=== PATIENT | female | born 1995 | race Caucasian/White ===

== ENCOUNTER 2017-05-09 18:19 | Emergency (ER) | payer OTHER ==
--- NOTE | 2017-05-09 19:27 | ED Physician Documentation ---
PD HPI NVD - Stated complaint Stated Complaint: CHILLS/8 WK OB - Chief complaint Chief Complaint: General - History obtained from History obtained from: Patient - History of Present Illness Timing - onset: How many weeks ago (few weeks nausea and vomiting, general weakness) Timing - duration: Weeks Timing - details: Gradual onset, Still present, Waxing and waning Contributing factors: No: Anticoagulated Improved by: Vomiting Worsened by: Eating Similar symptoms before: Has not had sx before Recently seen: Not recently seen - Additonal information Additional information: not really infectious. seems related to Review of Systems Constitutional: reports: Myalgias. denies: Fever, Chills Eyes: denies: Loss of vision Nose: denies: Rhinorrhea / runny nose, Congestion Throat: denies: Sore throat GI: reports: Nausea, Vomiting (some mornings). 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 : None - Past Surgical History Past Surgical History: Yes HEENT: Tonsil/Adenoidectomy - Present Medications Home Medications: Ambulatory Orders Medication Instructions Recorded Confirmed Doxylamine Succinate [Wal-Zane] 25 mg PO Q6H PRN #60 tablet 05/09/17 Famotidine [Pepcid] 20 mg PO ONCE #30 tablet 05/09/17 Ondansetron Odt [Zofran] 4 mg TL Q6H PRN #15 tablet 05/09/17 Vitamin [Trinatal Rx 1] 1 each PO DAILY #90 tablet 05/09/17 Pyridoxine HCl [Vitamin B-6] 25 mg PO BID #60 tablet 05/09/17 - Allergies Allergies/Adverse Reactions: Allergies Allergy/AdvReac Type Severity Reaction Status Date / Time No Known Drug Allergies Allergy Verified 05/09/17 18:32 - Social History Does the pt smoke?: No Smoking Status: Never smoker Does the pt drink ETOH?: No Does the pt have substance abuse?: No - Immunizations Immunizations are current?: Yes PD ED PE NORMAL - General General: Alert and oriented X 3, No acute distress, Well developed/nourished - HEENT HEENT: PERRL, Ears normal, Pharynx benign - Neck Neck: Supple, no meningeal sign, No adenopathy - Cardiac Cardiac: RRR, No murmur - Respiratory Respiratory: Clear bilaterally - Female Female : Deferred, Other (bedside U/S showed normal IUP with CRL c/w dates of 8 weeks and FHR seen. No free fluid. ) - Rectal Rectal: Deferred - Back Back: No CVA TTP - Derm Derm: Normal color, Warm and dry - Extremities Extremities: No deformity - Neuro Neuro: Alert and oriented X 3, No motor deficit, Normal speech Results - Vitals Vitals: Oxygen O2 Source Room air - Labs Labs: Laboratory Tests 05/09/17 19:20 Urine Color YELLOW Urine Clarity CLEAR Urine pH 6.0 Ur Specific [place]oner >=1.030 H Urine Protein NEGATIVE Urine Glucose (UA) NEGATIVE Urine Ketones NEGATIVE Urine Occult Blood TRACE-INTA Urine Nitrite NEGATIVE Urine Bilirubin NEGATIVE Urine Urobilinogen 0.2 (NORMAL) Ur Leukocyte Esterase NEGATIVE Ur Microscopic Review NOT INDICATED Urine Culture Comments NOT INDICATED PD MEDICAL DECISION MAKING - ED course Complexity details: reviewed results, considered differential (main process seems to be the nausea and some vomiting leading to weakness. No apparent infection per se. OB appt hasn't been set yet by [facility], so she does not know when first appt is. No meds from her PMD, deferred to OB. Can start her on antiemetic regimen and PNVs.), d/w patient Departure - Departure Disposition: 01 Home, Self Care Clinical Impression: Nausea Qualifiers: Weeks of gestation: 8 weeks Qualified Code(s): Z3A.08 - 8 weeks gestation of Abdominal pain Qualifiers: Abdominal location: upper abdomen, unspecified Qualified Code(s): R10.10 - Upper abdominal pain, unspecified Condition: Stable Record reviewed to determine appropriate education?: Yes Instructions: ED Preg Morning Sickness Follow-Up: KYLAH SRINIVASAN [Primary Care Provider] - Prescriptions: Doxylamine Succinate [Wal-Zane] 25 mg PO Q6H PRN #60 tablet PRN Reason: Nausea / Vomiting Famotidine [Pepcid] 20 mg PO ONCE #30 tablet Ondansetron Odt [Zofran] 4 mg TL Q6H PRN #15 tablet PRN Reason: Nausea / Vomiting Vitamin [Trinatal Rx 1] 1 each PO DAILY #90 tablet Pyridoxine HCl [Vitamin B-6] 25 mg PO BID #60 tablet Comments: Small frequent fluids and bland food. Use vitamin B6 twice a day regularly. Also famotidine which reduces stomach acids daily regularly. Add doxylamine every 6 hours if needed for nausea. To that you could also add ondansetron if needed for nausea. When her stomach is doing better over the next few days, then start vitamins daily as well. Follow-up with [facility] at their earliest appointments. Discharge Date/Time: 05/09/17 20:41
[2017-05-09 19:29] LABS: BILIRUBIN,URINE NEGATIVE (NEGATIVE)
[2017-05-09 19:30] LABS: UA CHARGE (STRIP ONLY) YES; UR CULTURE IF IND NOT INDICATED
[2017-05-09] MEDS ORDERED: ONDANSETRON ODT 4 MG TABLET TL STA (20:16)
[2017-05-09] MEDS ORDERED: ONDANSETRON ODT 4 MG Prepack 2 TL PRN (20:16)
[2017-05-09] MEDS ORDERED: FAMOTIDINE 20 MG TABLET PO STA (20:16)
[2017-05-09] MEDS ORDERED: ONDANSETRON ODT 4 MG TABLET ONE (20:29)
[2017-05-09] MEDS ORDERED: ONDANSETRON ODT 4 MG Prepack 2 TL ONE (20:29)
[2017-05-09] MEDS ORDERED: FAMOTIDINE 20 MG TABLET ONE (20:29)
[2017-05-09 20:42] VITALS: BP 111/68
== END 2017-05-09 20:41 | disposition home or self-care (01) ==
LOC: ED 18:19
DX: O21.9 Vomiting of pregnancy, unspecified (principal); O26.891 Other specified pregnancy related conditions, first trimester; R10.10 Upper abdominal pain, unspecified; Z3A.08 8 weeks gestation of pregnancy
CPT/HCPCS: 81003; 99283; A9270; Q0162; 81001; 87086

== ENCOUNTER 2018-07-04 08:45 | Emergency (ER) | payer OTHER ==
[2018-07-04] MEDS ORDERED: IBUPROFEN 800 MG TABLET PO STA (09:04)
--- NOTE | 2018-07-04 09:07 | ED Physician Documentation ---
PD HPI HEENT - Stated complaint Stated Complaint: SINUS PRESSURE/CONGESTION - Chief complaint Chief Complaint: Resp - History obtained from History obtained from: Patient - History of Present Illness Timing - onset: How many weeks ago (1) Timing - details: Other (Worse since yesterday.) Location: Sinuses, Throat Associated symptoms: Congestion, Headache, Cough Similar symptoms before: Has not had sx before - Additional information Additional information: The patient is a 22-year-old female who complains of sinus pressure that started about one week ago and has become worse since yesterday. She has had nonproductive cough, headache, and sore throat. She denies fever. She reports that her baby, who attends daycare, has been sick with upper respiratory symptoms. Review of Systems Constitutional: reports: Myalgias. denies: Fever Eyes: denies: Irritation Ears: denies: Ear pain Nose: reports: Congestion, Sinus pressure / pain Throat: reports: Sore throat Cardiac: denies: Chest pain / pressure Respiratory: reports: Cough. 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 : None - Past Surgical History Past Surgical History: Yes HEENT: Tonsil/Adenoidectomy - Present Medications Home Medications: Ambulatory Orders Medication Instructions Recorded Confirmed No Known Home Medications 07/04/18 07/04/18 - Allergies Allergies/Adverse Reactions: Allergies Allergy/AdvReac Type Severity Reaction Status Date / Time No Known Drug Allergies Allergy Verified 07/04/18 08:52 - Social History Does the pt smoke?: No Smoking Status: Never smoker Does the pt drink ETOH?: No Does the pt have substance abuse?: No - Immunizations Immunizations are current?: Yes PD ED PE NORMAL - Vitals Vital signs reviewed: Yes (Mildly tachycardic.) - General General: Alert and oriented X 3, Well developed/nourished - HEENT HEENT: Atraumatic, EOMI, Ears normal, Pharynx benign - Neck Neck: Supple, no meningeal sign, No adenopathy - Cardiac Cardiac: RRR, No murmur - Respiratory Respiratory: No respiratory distress, Clear bilaterally - Abdomen Abdomen: Soft, Non tender - Back Back: No CVA TTP - Derm Derm: No rash - Extremities Extremities: No edema, No calf tenderness / cord - Neuro Neuro: Alert and oriented X 3, No motor deficit, Normal speech Results - Vitals Vitals: Oxygen O2 Source Room air PD MEDICAL DECISION MAKING - ED course Complexity details: considered differential, d/w patient ED course: The patient's presentation is most consistent with viral upper respiratory infection. Her presentation does not suggest meningitis, peritonsillar abscess, or pneumonia. Further diagnostic workup is not clinically warranted given her current symptoms and exam. Treatment in the emergency department included administration of ibuprofen 800 mg orally. I discussed with her the expected course of illness, symptomatic treatment and outpatient follow-up, as well as potentially worrisome signs or symptoms that should prompt reevaluation in the emergency department. Departure - Departure Disposition: 01 Home, Self Care Clinical Impression: Viral URI Condition: Stable Instructions: ED URI Viral Follow-Up: [facility] Baig [Provider Group] Comments: Your symptoms are most consistent with a viral upper respiratory infection. An tibiotics are not clinically indicated for this type of viral infection. Treatment should be geared toward managing symptoms: You can use your Afrin nasal spray to help with sinus congestion. Drink plenty of fluids. Use Tylenol or ibuprofen as needed for fever or discomfort. Wash your hands frequently, and cover your cough. Follow up with your primary physician, or return to the emergency department, if not improving within 1-2 weeks. Return to the emergency department if you develop increasing difficulty breathing, or otherwise worsening symptoms. Forms: Activity restrictions Discharge Date/Time: 07/04/18 09:22
[2018-07-04 09:22] VITALS: BP 110/60
== END 2018-07-04 09:22 | disposition home or self-care (01) ==
LOC: ED 08:45
DX: J06.9 Acute upper respiratory infection, unspecified (principal); B97.89 Other viral agents as the cause of diseases classified elsewhere
CPT/HCPCS: 99282; 99283; A9270

== ENCOUNTER 2020-03-18 11:30 | Outpatient (CLI) | payer BC | END 2020-03-18 23:59 | disposition home or self-care (01) | LOC: COV 11:30 | PROVIDERS: ATTEND Family Medicine | DX: R05 Cough (principal); R09.81 Nasal congestion; J02.9 Acute pharyngitis, unspecified; Z20.828 Contact with and (suspected) exposure to other viral communicable diseases ==

== ENCOUNTER 2020-05-12 07:00 | Outpatient (CLI) | payer BC | END 2020-05-12 23:59 | disposition home or self-care (01) | LOC: COV 07:00 | PROVIDERS: ATTEND Family Medicine | DX: R53.83 Other fatigue (principal); R19.7 Diarrhea, unspecified; R11.2 Nausea with vomiting, unspecified; Z20.828 Contact with and (suspected) exposure to other viral communicable diseases ==